=== PATIENT | female | born 1970 | race Caucasian/White ===

== ENCOUNTER 2021-11-15 14:43 | Day surgery (SDC) | payer OTHER ==
[~2021-11-15] VITALS: Ht 170.2 cm; Wt 102.6 kg
[~2021-11-15 14:43] MED LIST: EFFEXOR XR75 MG/CAP PO; PRINZIDE 12.5 M1 TA1 PO
[2021-11-15 15:11] VITALS: BP 119/69; PULSE 86; TEMP 98.4
[2021-11-15 17:30] VITALS: BP 115/67; PULSE 72
[2021-11-15 17:40] VITALS: BP 111/66; PULSE 72
[2021-11-15 17:46] VITALS: BP 130/70; PULSE 74
[2021-11-15 18:49] VITALS: BP 108/74; PULSE 71; TEMP 98.7
== END 2021-11-15 17:55 | disposition home health service (06) ==
LOC: SDCO 14:43
DX: N20.1 Calculus of ureter (principal)
CPT/HCPCS: C1769; C2617; J0690; J1100; J1885; J2405; J2704; J3010; J7120; Q9967